=== PATIENT | female | born 1985 | race African-American/Black ===

== ENCOUNTER 2024-04-08 10:42 | Emergency (ER) | payer MEDICAID, OTHER ==
[~2024-04-08] VITALS: Ht 165.1 cm; Wt 95.4 kg
[2024-04-08 11:27] LABS: Basophils # (auto) 0 10 ^3/uL (0-0.2); Basophils % (auto) 0.3 % (0.0-2.0); Eosinophils # (auto) 0 10 ^3/uL (0-0.8); Eosinophils % (auto) 0.1 % (0.0-7.0); Hematocrit 39.7 % (36.0-46.0); Hemoglobin 13.8 g/dL (12.2-16.2); Lymphocytes # (auto) 1.8 10 ^3/uL (0.4-5.4); Lymphocytes % (auto) 16.5 % (10.0-50.0); Mean Corpuscular Hemoglobin 31.3 pg (28.0-32.0); Mean Corpuscular Hgb Conc. 34.8 g/dL (32.0-36.0); Mean Corpuscular Volume 89.9 fL (80.0-100.0); Monocytes # (auto) 0.5 10 ^3/uL (0-1.3); Neutrophils # (auto) 8.8 10 ^3/uL (1.6-8.6); Neutrophils % (auto) 79.1 % (37.0-80.0); Platelet Count (auto) 464 10^3/uL (140-450); Red Blood Cells 4.42 10^6/uL (4.0-5.20); Red Cell Distribution Width 12.9 % (11.8-14.3); White Blood Cell 11.2 10^3/uL (4.4-10.8)
[2024-04-08 11:39] LABS: Alanine Aminotransferase 26 U/L (7-40); Albumin 4.9 g/dL (3.2-4.8); Alkaline Phosphatase 73 U/L (46-116); Anion Gap 12 (5-15); Aspartate Aminotransferase 21 U/L (13-40); BUN/Creatinine Ratio 8.3 (10.0-20.0); Bilirubin, Total 0.8 mg/dL (0.2-1.0); Blood Urea Nitrogen 8 mg/dL (9-23); Calcium 9.8 mg/dL (8.7-10.4); Carbon Dioxide 23 mmol/L (20-30); Chloride 101 mmol/L (98-107); Glucose 131 mg/dL (74-106); Potassium 2.9 mmol/L (3.5-5.1); Sodium 136 mmol/L (136-145); Total Protein 8.1 g/dL (5.7-8.2)
[2024-04-08 12:23] LABS: Urine Bacteria FEW /hpf (None Seen); Urine Blood 3+ /uL (Negative); Urine Clarity Turbid (Clear); Urine Mucus FEW (None Seen); Urine Protein, UAD TRACE (Negative); Urine Specific Gravity 1.017 (1.001-1.035); Urine Urobilinogen Normal (Negative); Urine WBC 13 /hpf (0 - 5)
[2024-04-08 12:24] LABS: Urine Color Yellow (Yellow)
[2024-04-08 13:13] VITALS: BP 146/106; TEMP 98.3
[2024-04-08] MEDS: cefTRIAXone 1GM/50ML D5W 50 ML IV ONE (13:26)
[2024-04-08] MEDS: POTASSIUM CHL 20 Meq TABLET PO ONE (13:26)
[2024-04-08 13:30] VITALS: PULSE 111; RESP 18; O2SAT 98
== END 2024-04-08 14:43 | disposition home or self-care (01) ==
LOC: ER 10:42
DX: R07.89 Other chest pain (principal); E87.6 Hypokalemia; N39.0 Urinary tract infection, site not specified; I10 Essential (primary) hypertension; F17.210 Nicotine dependence, cigarettes, uncomplicated; F10.90 Alcohol use, unspecified, uncomplicated; Z98.890 Other specified postprocedural states; Y90.0 Blood alcohol level of less than 20 mg/100 ml
CPT/HCPCS: 36415; 71045; 80053; 81001; 84484; 85025; 93005; 96365; 99285; J0696

== ENCOUNTER 2024-10-26 19:41 | Emergency (ER) | payer MEDICAID ==
[~2024-10-26] VITALS: Ht 165.1 cm; Wt 98.8 kg
[2024-10-26 19:50] VITALS: TEMP 97.8
[2024-10-26] MEDS ORDERED: cloNIDine HCL 0.1 MG TAB PO ONE (21:15)
[2024-10-26] MEDS: TETANUS-DIPTH-ACEL PERTUSSIS 0.5ML SYR Tdap IM ONE (21:18)
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
[2024-10-26] MEDS ORDERED: AMOX875T4 PO (21:28)
[2024-10-26] MEDS: hydroCHLOROthiazide 25 MG TAB PO ONE (21:30)
[2024-10-26] MEDS: cloNIDine HCL 0.1 MG TAB PO ONE (21:30)
[2024-10-26 22:28] VITALS: BP 164/110; PULSE 111; RESP 16; O2SAT 97
== END 2024-10-26 22:36 | disposition home or self-care (01) ==
LOC: ER 19:41
DX: S60.410A Abrasion of right index finger, initial encounter (principal); S00.81XA Abrasion of other part of head, initial encounter; Z98.890 Other specified postprocedural states; F17.210 Nicotine dependence, cigarettes, uncomplicated; I10 Essential (primary) hypertension; Y09 Assault by unspecified means; Y93.89 Activity, other specified; Y92.89 Other specified places as the place of occurrence of the external cause; Y99.8 Other external cause status
CPT/HCPCS: 90471; 90715